=== PATIENT | female | born 1985 | race Caucasian/White ===

== ENCOUNTER 2018-05-13 06:02 | Day surgery (SDC) | payer OTHER ==
[~2018-05-13] VITALS: Ht 149.9 cm; Wt 62.6 kg
[~2018-05-13 06:02] MED LIST: LACTATED RINGERS 1,000 ML IV SCH
[2018-05-13 06:41] LABS: UCG SCREEN NEGATIVE
[2018-05-13] MEDS ORDERED: PROPOFOL 200MG/20ML VIAL IV ONE (06:43)
[2018-05-13] MEDS ORDERED: LIDOCAINE HCL/PF 1% 10 MG/ML 5ML VIAL ONE (06:44)
[2018-05-13] MEDS ORDERED: INDOCYANINE GREEN 25 MG VIAL IV ONE (06:45)
[2018-05-13] MEDS ORDERED: FENTANYL CITRATE/PF 50MCG/ML 2ML VIAL ONE (06:45)
[2018-05-13] MEDS ORDERED: SKIN ADHESIVE 0.7 GM EA TOP ONE (06:45)
[2018-05-13] MEDS ORDERED: MIDAZOLAM HCL 2 MG/2 ML VIAL ONE (06:45)
[2018-05-13] MEDS ORDERED: BUPIVACAINE HCL 0.5% (5MG/ML) 50ML ONE (06:46)
[2018-05-13] MEDS ORDERED: ROCURONIUM BROMIDE 10MG/ML VIAL 5ML IV ONE (06:47)
[2018-05-13] MEDS ORDERED: SODIUM CHLORIDE 0.9% 10ML VIAL ONE (06:48)
[2018-05-13] MEDS ORDERED: CEFAZOLIN SODIUM 1000MG/VIAL ONE (06:48)
[2018-05-13] MEDS ORDERED: CHOL100053 PO (07:13)
[2018-05-13] MEDS ORDERED: DEXAMETHASONE 4MG/ML 1ML VIAL ONE (07:39)
[2018-05-13] MEDS ORDERED: ONDANSETRON HCL 4MG/2ML INJ ONE (07:41)
[2018-05-13] MEDS ORDERED: NEOSTIGMINE METHYLSULFATE 1MG/ML 10 ML VIAL ONE (08:41)
[2018-05-13] MEDS ORDERED: GLYCOPYRROLATE 0.2 MG/ML 2ML VIAL ONE (08:42)
[2018-05-13] MEDS ORDERED: KETOROLAC 30MG/ML VIAL IV NR (09:05)
[2018-05-13] MEDS ORDERED: KETOROLAC 30MG/ML VIAL ONE (09:15)
[2018-05-13] MEDS ORDERED: HYDROMORPHONE HCL/PF 2MG/ML CPJ ONE (09:15)
[2018-05-13] MEDS: HYDROMORPHONE HCL/PF 2MG/ML CPJ IV PRN ×4 (11:18→12:07)
[2018-05-13 12:07] VITALS: BP 118/56
== END 2018-05-13 12:35 | disposition home or self-care (01) ==
LOC: OR 06:02
PROVIDERS: ATTEND Surgery
DX: K80.10 Calculus of gallbladder with chronic cholecystitis without obstruction (principal); E03.9 Hypothyroidism, unspecified
CPT/HCPCS: 47562; 81025; 88304; G0168; J0690; J1100; J1170; J1885; J2250; J2405; J2704; J2710; J3010; J3490; S2900; Q9957